=== PATIENT | female | born 1985 ===

== ENCOUNTER 2022-01-18 07:26 | Outpatient (CLI) | payer OTHER, SELFPAY ==
[2022-01-18 07:50] LABS: Basophils Absolute Auto 0.09 K/mm3 (0.00-0.10); Basophils Percent Auto 1.4 % (0.0-1.0); Eosinophils Absolute Auto 0.28 K/mm3 (0.02-0.50); Eosinophils Percent Auto 4.4 % (1.0-6.0); Hematocrit 38.1 % (35.0-49.0); Hemoglobin 13.1 g/dL (12.0-15.0); Immature Granulocyte Absolute 0.02 K/mm3 (0.00-0.00); Immature Granulocyte Percent A 0.3 % (0.0-0.0); Lymphocytes Absolute Auto 2.68 K/mm3 (1.10-4.50); Lymphocytes Percent Auto 42.3 % (18.0-42.0); Mean Corpuscular HGB Conc 34.4 g/dL (32.0-36.0); Mean Corpuscular Hemoglobin 33.1 pg (27.0-31.0); Mean Corpuscular Volume 96.2 fL (78.0-102.0); Mean Platelet Volume 9.4 fl (9.2-11.8); Monocytes Absolute Auto 0.67 K/mm3 (0.10-0.90); Monocytes Percent Auto 10.6 % (2.0-11.0); Neutrophils Absolute Auto 2.6 K/mm3 (1.7-7.2); Platelet Count Result 260 K/mm3 (150-420); Red Blood Count 3.96 M/mm3 (4.20-5.40); Red Cell Distribution Width 14.4 % (11.6-14.4); White Blood Count 6.3 K/mm3 (4.8-10.8)
[2022-01-18 08:46] LABS: Alanine Aminotransferase 83 U/L (14-59); Albumin Level 3.5 g/dL (3.4-5.0); Alkaline Phosphatase 53 U/L (46-116); Anion Gap 8 mmol/L (8-16); Aspartate Amino Transferase 104 U/L (15-37); Bilirubin,Total 0.3 mg/dL (0.00-1.00); Blood Urea Nitrogen 9 mg/dL (7-18); Calcium 8.1 mg/dL (8.5-10.1); Carbon Dioxide 28 mmol/L (21-32); Chloride 103 mmol/L (98-108); Cholesterol 243 mg/dL (0-200); Estimated Glomerular Filt Rate > 60; Glucose 95 mg/dL (70-99); Osmolality Calculated 286 mOsm/kg (285-295); Potassium 3.6 mmol/L (3.5-5.1); Sodium 139 mmol/L (136-145); Total Protein 7.2 g/dL (6.4-8.2); Triglycerides 68 mg/dL (0-150)
[2022-01-18 08:47] LABS: HDL Direct > 150 mg/dL (40-60); LDL Cholesterol Calculated 79 mg/dL (<130)
== END 2022-01-18 07:27 | disposition home or self-care (01) ==
LOC: CHSLAB 07:29
PROVIDERS: PCP Nurse Practitioner Family; Visit Provider Nurse Practitioner Family
DX: F41.1 Generalized anxiety disorder (principal)
CPT/HCPCS: 36415; 80053; 80061; 85025

== ENCOUNTER 2022-01-21 14:45 | Outpatient (CLI) | payer OTHER, SELFPAY ==
[2022-01-21 15:51] LABS: Magnesium 1.7 mg/dL (1.8-2.4); Vitamin B12 384 pg/mL (193-986)
[2022-01-22 09:35] LABS: Folic Acid 12.4 ng/mL (8.6->20)
[2022-01-25 19:31] LABS: Vitamin D 25 Hydroxy 15 ng/mL (30-100)
== END 2022-01-21 14:46 | disposition home or self-care (01) ==
LOC: CHSLAB 14:50
PROVIDERS: PCP Nurse Practitioner Family; Visit Provider Nurse Practitioner Family
DX: E83.42 Hypomagnesemia (principal); R25.3 Fasciculation; R25.2 Cramp and spasm; F41.1 Generalized anxiety disorder
CPT/HCPCS: 36415; 82306; 82607; 82746; 83735; 84443

== ENCOUNTER 2022-01-27 10:19 | Outpatient (CLI) | payer OTHER, SELFPAY ==
--- NOTE | ~2022-01-27 | CT_ITS ---
EXAMINATION: CT brain wo con DATE: 01/27/2022 10:35 INDICATION: Slurred speech. Disorientation. TECHNIQUE: Computed tomography (CT) of the head was performed without intravenous contrast. The mA wa s adjusted according to patient size. Iterative reconstruction technique was employed. The dose-lengt h product was 524.62 mGy-cm. COMPARISON: None FINDINGS: There is no intracranial hemorrhage, acute infarction, or abnormal intracranial mass lesion . The ventricles are normal in size. The paranasal sinuses are clear. The orbits are normal. The mast oid air cells are normal. IMPRESSION: 1. Normal brain. Reviewed, dictated and finalized at location B. IMPRESSION: 1. Normal brain.
== END 2022-01-27 10:20 ==
PROVIDERS: PCP Nurse Practitioner Family; Visit Provider Nurse Practitioner Family
DX: R47.81 Slurred speech (principal)
CPT/HCPCS: 70450

== ENCOUNTER 2022-02-15 10:08 | Outpatient (CLI) | payer OTHER, SELFPAY ==
[2022-02-15 11:28] LABS: Beta HCG Quantitative < 1.00 mIU/mL (0-6)
== END 2022-02-15 10:09 | disposition home or self-care (01) ==
LOC: CHSLAB 10:14
PROVIDERS: PCP Nurse Practitioner Family; Visit Provider Nurse Practitioner Family
DX: N92.6 Irregular menstruation, unspecified (principal)
CPT/HCPCS: 36415; 84702

== ENCOUNTER 2023-01-17 20:08 | Emergency (ER) | payer OTHER, SELFPAY ==
[2023-01-17 20:11] VITALS: BP 125/80; PULSE 94; TEMP 36.4; O2SAT 100
[2023-01-17 20:21] VITALS: BP 122/77; PULSE 84; RESP 18; TEMP 36.7; O2SAT 100
--- NOTE | 2023-01-17 20:49 | ED.GENADULT ---
HPI - General Adult General Chief complaint: Eye Problems Stated complaint: swollen eye Time Seen by Provider: 01/17/23 20:32 History of Present Illness HPI narrative: Healthy 37yo woman presents with large right eyelid and periorbital area swelling, new onset this evening after being bitten by an insect just lateral to the right eye. No other trauma. Vision is normal. no pain or itch. Related Data Allergies Allergy/AdvReac Type Severity Reaction Status Date / Time Penicillins Allergy Intermediate Unknown Verified 10/24/22 13:08 Review of Systems Review of Systems: All systems reviewed & are unremarkable except as noted in HPI and below Constitutional: Constitutional: Denies fever(s) Eyes: Eyes: Denies change in vision and Denies photophobia ENT: Denies dysphagia and Denies sore throat Cardiovascular: Cardiovascular: Denies chest pain Respiratory: Respiratory: Denies dyspnea [facility] Family History Family History Grandparent Family history of type 2 diabetes mellitus Mother Family history of type 2 diabetes mellitus Hypertension Father Hypertension Social History Social History Smoking status: Never smoker Alcohol intake: current Alcohol use details: social Substance use: never Substance use type: does not use Exam HENMT: Head: no contusions, no hematomas and no lacerations Mouth: Yes Normal oral and palatal mucosa present and Yes moist mucous membranes Other: there is soft tissue swelling without induration about the right eye, with clear sclera and conjunctivae, normal pupil and EOMI Eyes: Conjunctivae: conjunctivae normal Pupils: Equal, round and reactive pupils present EOM: EOMs intact bilaterally Neck: Other: supple Resp: Effort & Inspection: normal respiratory effort and not labored Cardio: Rate: regular rate GI: Inspection: non-distended Skin: General skin exam: normal color, no jaundice and no pallor Neuro: General: patient oriented x3 and no focal motor deficits Other: face symmetric, speech clear and fluent without dysphonia Extrem: General: normal to inspection and no clubbing, cyanosis or edema Course Vital Signs Vital signs: Vital Signs Temperature 36.4 C L 01/17/23 20:11 Pulse Rate 94 01/17/23 20:11 Blood Pressure 125/80 01/17/23 20:11 Pulse Oximetry 100 01/17/23 20:11 Oxygen Delivery Room Air 01/17/23 20:11 Temperature 36.7 C 01/17/23 20:21 Pulse Rate 84 01/17/23 20:21 Respiratory Rate 18 01/17/23 20:21 Blood Pressure 122/77 01/17/23 20:21 Pulse Oximetry 100 01/17/23 20:21 Oxygen Delivery Room Air 01/17/23 20:21 Medical Decision Making MDM Narrative Medical decision making narrative: isolated swelling of right periorbital area with normal globe DDx local reaction to insect bite, mild angioedema, no evidence of anaphylaxis or systemic inflammatory reaction/medicationr reaction (contralateral eye is normal) Vital Signs Vital Signs: Vital Signs Temperature 36.4 C L 01/17/23 20:11 Pulse Rate 94 01/17/23 20:11 Blood Pressure 125/80 01/17/23 20:11 Pulse Oximetry 100 01/17/23 20:11 Oxygen Delivery Room Air 01/17/23 20:11 Temperature 36.7 C 01/17/23 20:21 Pulse Rate 84 01/17/23 20:21 Respiratory Rate 18 01/17/23 20:21 Blood Pressure 122/77 01/17/23 20:21 Pulse Oximetry 100 01/17/23 20:21 Oxygen Delivery Room Air 01/17/23 20:21 Discharge Plan Discharge Clinical Impression: Insect bite Patient Disposition: Home, Self-Care Condition: Stable Additional Instructions: The steroid medication given to you tonight will last for 3 days. No additional doses are needed. For continued swelling or itching, you can take Diphenhydramine (Benadryl) 50 mg every 6 hours as needed. Prescriptions: No Action lorazepam 0.5 mg tablet
[2023-01-17 21:06] VITALS: BP 121/75; PULSE 86; RESP 18; TEMP 37.1; O2SAT 100
== END 2023-01-17 21:07 | disposition home or self-care (01) ==
PROVIDERS: Emergency Provider Emergency Medicine; PCP Nurse Practitioner Family
DX: S05.8X1A Other injuries of right eye and orbit, initial encounter (principal); W57.XXXA Bitten or stung by nonvenomous insect and other nonvenomous arthropods, initial encounter
CPT/HCPCS: 96372; 99283; J1100

== ENCOUNTER 2023-10-03 19:15 | Emergency (ER) | payer OTHER, SELFPAY ==
[2023-10-03 19:15] VITALS: BP 134/91; PULSE 89; RESP 18; TEMP 36.8; O2SAT 100
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
== END 2023-10-03 19:53 ==
PROVIDERS: Emergency Provider Family Medicine; PCP Nurse Practitioner Family
DX: S09.90XA Unspecified injury of head, initial encounter (principal); V89.2XXA Person injured in unspecified motor-vehicle accident, traffic, initial encounter
CPT/HCPCS: 99281

== ENCOUNTER 2023-12-08 13:06 | Emergency (ER) | payer OTHER, SELFPAY ==
--- NOTE | 2023-12-08 13:12 | ED.PSYCH ---
HPI - Psych General Chief Complaint: Psychiatric Symptoms Stated Complaint: Mental evaluation Time Seen by Provider: 12/08/23 13:08 Source: patient and family Mode of arrival: ambulatory Limitations: no limitations History of Present Illness HPI Narrative: patient is a 38-year-old female here upon recommendation from psychiatric counseling to get evaluation. She had some alcohol last night and suicidal discussion. She is not suicidal at this time. We are waiting for the workup for medical clearance at this time. MD complaint: feels depressed Onset (ago): day(s) (2) Duration: constant History of same: Yes Relieving factors: none Exacerbating factors: alcohol Context: recent alcohol abuse and significant life stressor ( Relationship issues and child custody issues) Associated psychiatric symptoms: depression and suicidal ideation Associated symptoms: denies other symptoms Treatments prior to arrival: none Related Data Home Medications Medication Instructions Recorded Confirmed propranolol 20 mg tablet 20 mg PO TID 12/08/23 12/08/23 Allergies Allergy/AdvReac Type Severity Reaction Status Date / Time Penicillins Allergy Intermediate Unknown Verified 10/10/23 10:32 Review of Systems Review of Systems: All systems reviewed & are unremarkable except as noted in HPI and below Constitutional: Constitutional: Reports no additional constitutional complaints Eyes: Eyes: Reports no additional eye complaints ENT: Reports system reviewed and no additional complaints, except as documented Cardiovascular: Cardiovascular: Reports no additional cardiovascular complaints Respiratory: Respiratory: Reports no additional respiratory complaints Gastrointestinal: Gastrointestinal: Reports no additional gastrointestinal complaints Genitourinary: Genitourinary: Reports no additional female genitourinary complaints Musculoskeletal: Musculoskeletal: Reports no additional musculoskeletal complaints Integumentary/Breasts: Skin/Breast: Reports system reviewed and no additional complaints, except as docu Neurologic: Reports system reviewed and no additional complaints, except as documented Psychiatric: Psychiatric: Reports no additional psychiatric complaints Endocrine: Endocrine: Reports no additional endocrine complaints Hematologic/Lymphatic: Hematologic/Lymphatic: Reports no additional hematologic/lymphatic complaints Allergic/Immunologic: Allergic/Immunologic: Reports no additional allergic/immunologic complaints PMFSH Family History Family History Grandparent Family history of type 2 diabetes mellitus Mother Family history of type 2 diabetes mellitus Hypertension Father Hypertension Social History Social History Smoking status: Never smoker Alcohol intake: current Alcohol use details: social Substance use: never Substance use type: does not use Exam Const: General: healthy appearing Nutritional Appearance: well nourished Orientation/consciousness: patient oriented x3 HENMT: Head: normal to inspection Ears: external ears normal Face/Nose/Sinus: Normal external nose present Eyes: Conjunctivae: conjunctivae normal Pupils: Equal, round and reactive pupils present EOM: EOMs intact bilaterally Neck: Neck: normal visual inspection Chest: Chest palpation & inspection: normal inspection of the chest Resp: Effort & Inspection: normal respiratory effort and not labored Auscultation: clear to auscultation bilaterally Cardio: Rate: regular rate Rhythm: regular rhythm Heart sounds: no murmurs GI: Inspection: non-distended GI Palp: Yes Soft to palpation and No Tenderness to palpation present (GI) Auscultation: normal bowel sounds : General: Yes bladder normal to palpation Back/Spine/Pelvis: Back: no CVA tenderness Skin: General skin exam: normal color Rashes: no rashes Wounds:
--- NOTE | 2023-12-08 13:14 | ECG_ITS ---
SEE SCANNED COPY FOR CONFIRMED REPORT MTDD
[2023-12-08 13:15] VITALS: BP 146/103; PULSE 82; RESP 18; TEMP 36.6; O2SAT 99
[2023-12-08 13:32] LABS: Pregnancy On Board Control Positive; Urine Pregnancy Test Negative
[2023-12-08 13:46] LABS: Basophils Percent Auto 1.4 % (0.0-1.0); Eosinophils Absolute Auto 0.11 K/mm3 (0.02-0.50); Eosinophils Percent Auto 1.6 % (1.0-6.0); Hematocrit 38.8 % (35.0-49.0); Hemoglobin 13.4 g/dL (12.0-15.0); Immature Granulocyte Absolute 0.03 K/mm3 (0.00-0.00); Immature Granulocyte Percent A 0.4 % (0.0-0.0); Lymphocytes Absolute Auto 2.02 K/mm3 (1.10-4.50); Lymphocytes Percent Auto 28.9 % (18.0-42.0); Mean Corpuscular HGB Conc 34.5 g/dL (32-36); Mean Corpuscular Hemoglobin 33.8 pg (27.0-31.0); Mean Corpuscular Volume 97.7 fL (78.0-102.0); Mean Platelet Volume 8.6 fl (9.2-11.8); Monocytes Absolute Auto 0.46 K/mm3 (0.10-0.90); Monocytes Percent Auto 6.6 % (2.0-11.0); Neutrophils Absolute Auto 4.27 K/mm3 (1.70-7.20); Neutrophils Percent Auto 61.1 % (50.0-70.0); Platelet Count Result 250 K/mm3 (150-420); Red Blood Count 3.97 M/mm3 (4.20-5.40); Red Cell Distribution Width 14.3 % (11.6-14.4)
[2023-12-08 13:47] LABS: Appearance Urine Clear (Clear); Bilirubin Urine Negative (Negative); Blood Urine Negative (Negative); Color Urine Light Yellow (Yellow); Glucose Urine UA Negative (Negative); Ketones Urine Negative (Negative); Leukocyte Esterase Ur Negative LEU/UL (Negative); Nitrate Urine Negative (Negative); Protein Urine Negative (Negative); Specific Grav Ur <= 1.005 (1.010-1.020); Urobilinogen Urine 0.2 mg/dL (0.2-1.0)
[2023-12-08 13:48] LABS: Amphetamine Screen Urine Negative (Negative); Barbiturate Screen Urine Negative (Negative); Benzodiazepines Screen Urine Negative (Negative); Cannabinoid Screen Urine Negative (Negative); Cocaine Screen Urine Negative (Negative); Methadone Screen Urine Negative (Negative); Opiate Screen Urine Negative (Negative); Phencyclidine Screen Urine Negative (Negative)
[2023-12-08 13:49] LABS: Add Urine Microscopic? NO
--- NOTE | 2023-12-08 13:56 | PC.NURSE ---
1330 pt states she has drank this am and pt also states she has not had suicidal ideations or homicidal ideation pt is under the infuence of alcohol and columbia scale not able to be completed at this time per ERP pt does not need a sitter at this time
[2023-12-08 14:14] LABS: Alanine Aminotransferase 46 U/L (14-59); Alkaline Phosphatase 74 U/L (46-116); Anion Gap 9 mmol/L (4-12); Aspartate Amino Transferase 80 U/L (15-37); Bilirubin,Total 0.4 mg/dL (0.00-1.00); Blood Urea Nitrogen 7 mg/dL (7-18); Calcium 8.3 mg/dL (8.5-10.1); Carbon Dioxide 29 mmol/L (21-32); Chloride 101 mmol/L (98-108); Estimated CRCL calculation 100 ml/min; Estimated Glomerular Filt Rate > 60; Glucose 77 mg/dL (70-99); Osmolality Calculated 285 mOsm/kg (285-295); Potassium 4.2 mmol/L (3.5-5.1); Salicylate 0.8 mg/dL (2.8-20.0); Sodium 139 mmol/L (136-145); Thyroid Stimulating Hormone 1.62 uIU/mL (0.36-3.74); Total Protein 6.7 g/dL (6.4-8.2)
[2023-12-08 14:15] LABS: Acetaminophen 0 ug/mL (10-30)
[2023-12-08 14:16] LABS: Ethanol 307 mg/dL (0-6)
[2023-12-08] MEDS: ALPRAZolam (*CRX) 0.5 MG TABLET PO ×2 (14:19→20:42)
--- NOTE | 2023-12-08 14:31 | PC.NURSE ---
Meal provided to patient. Pt advised she was not hungry but would try to eat something. Pt also request her phone, as its a comfort thing for her. Pt was advised she could not have her phone at this time.
--- NOTE | 2023-12-08 14:58 | PC.NURSE ---
1400 pt given water cup per her request tv turned on for pt pt asked for phone and was told she could not have it per policy ERP agreed
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
[2023-12-08 18:10] LABS: Ethanol 129 mg/dL (0-6)
--- NOTE | 2023-12-08 18:45 | PC.NURSE ---
1755 pt labs repeated for ETOH level
--- NOTE | 2023-12-08 18:46 | PC.NURSE ---
1600 resting quietly friend at bedside
--- NOTE | 2023-12-08 18:47 | PC.NURSE ---
1700 resting quietly mother at bedside
--- NOTE | 2023-12-08 18:47 | PC.NURSE ---
1845 pt at nurses station wanting to go home talking with doctor pt redirected pt given tablet and went back to her room
[2023-12-08 20:49] LABS: Ethanol 26 mg/dL (0-6)
--- NOTE | 2023-12-08 21:10 | PC.NURSE ---
patient requesting to speak with daughter on the phone at about 2130 tonight before she goes to bed. ERP ok with patient using phone with talk with daughter before her evaluation. cadd instructor will be at bedside for phone call to monitor.
[2023-12-08 21:19] VITALS: BP 146/95; PULSE 94; RESP 18; TEMP 36.4; O2SAT 96
== END 2023-12-09 00:56 | disposition home or self-care (01) ==
PROVIDERS: Emergency Provider Emergency Medicine; PCP Nurse Practitioner Family
DX: F32.A Depression, unspecified (principal); F10.10 Alcohol abuse, uncomplicated
CPT/HCPCS: 36415; 80053; 80307; 81003; 81025; 84443; 85025; 93005; 99284; A9270